=== PATIENT | male | born 1940 | race Caucasian/White ===

== ENCOUNTER 2018-02-24 06:35 | Day surgery (SDC) | payer MEDICARE, OTHER, SELFPAY ==
--- NOTE | 2018-02-24 | PATH_ITS ---
[facility] Accession Number: [id number] . 01 Material submitted: . PART A: CECUM POLYP PART B: POLYP AT 70CM . 01 Clinical history: . A-B: POLYP X2 . 02 Diagnosis: A. Cecum, Polyps, Biopsies: Tubular adenoma in 2 of 2 fragments. . B. Colon, Polyp At 70 CM, Biopsy: Tubular adenoma in 2 of 3 fragments. BFI02/28/2018 . 02 Electronically signed: . Kassidy Martin MD, Pathologist NPI- [id number] . 01 Gross description: . A. The specimen is received in a container of formalin, labeled with the patient's name, designated polyp x2 at cecum. The specimen consists of three 0.1-0.4 cm, pink-sanchez, polypoid biopsies. Entirely submitted three pieces in cassette A1. B. The specimen is received in a container of formalin, labeled with the patient's name, designated polyp x2 at 70 cm. The specimen consists of three 0.3-0.4 cm, thin, xavier-sanchez biopsies. ET intact, 3 pieces, in cassette B1. ([id number]) /FRR . 02 Pathologist provided ICD-10: D12.0, D12.6 . 02 CPT . 745198, 516013 Performed at: [address] [facility] [address], [place], [place] [id number] MD Venkata Coelho MD Phone: [phone] [facility]formed at: [facility] [address] [place], [place] [id number] MD Krishna Denny MD Phone: [phone]
[2018-02-24 07:11] VITALS: BP 129/76; PULSE 58; RESP 16; TEMP 35.9; O2SAT 99; BMI 25.9
[2018-02-24] MEDS: SODIUM CHLORIDE 0.9% 1,000 ML 200 ML IV (07:15)
--- NOTE | 2018-02-24 08:27 | P.HP_ITS ---
History of Present Illness Chief complaint: colonoscopy [id number] Narrative: Renato aBin is a 77 year old male who is remarkably healthy for his age. He reports he has a history of colon polyps and it is time for a screening colonoscopy. He denies any problems or symptoms related to the function of his GI tract. Patient History Surgical History History of carpal tunnel repair History of esophagogastroduodenoscopy (EGD) Status post colonoscopy Family & Social History Family History: Reviewed 02/24/18 by aTmica Quinn MD Social History: household members spouse Meds Home Medications Medication Instructions Recorded Confirmed Type ltuujwqgbfje-jpbn-gtttl acid 1 tab PO DAILY 02/24/18 02/24/18 History [Centrum] Allergies Allergy/AdvReac Type Severity Reaction Status Date / Time No Known Drug Allergies Allergy Verified 02/24/18 07:35 Review of Systems Review of Systems All systems reviewed & are unremarkable except as noted in HPI and below Exam Vital Signs (past 8 hours): Vital Signs - 8 hr 3 02/24/18 07:11 Temperature 96.7 F L Pulse Rate 58 L Respiratory Rate 16 Blood Pressure 129/76 H Pulse Oximetry 99 Pulse Oximetry 99 Oxygen Delivery Method Room Air Narrative Exam Narrative: HEENT: Normocephalic atraumatic, pupils equal round reactive to light accommodation with anicteric sclera Lungs: Clear to auscultation bilaterally Heart: Regular rate and rhythm Abdomen: Soft, nontender, active bowel sounds Extremities: Warm and well perfused Assessment & Plan Plan: Plan: We discussed the risks and benefits of colonoscopy the patient has expressed desire to have the procedure
[2018-02-24] MEDS: fentaNYL 250 MCG/5 ML INJ IV (08:40)
[2018-02-24] MEDS: MIDAZOLAM 5 MG/5 ML VIAL IV (08:44)
--- NOTE | 2018-02-24 08:56 | PM.OP.1 ---
Operative Date/Time/Diagnoses - Date of procedure: 02/24/18 Time of procedure: 08:56 Pre-op diagnosis: Personal history of colon polyps Post-op diagnosis: same Procedure & Clinicians Procedure: Colonoscopy to the cecum with polypectomy x4 Same procedure as scheduled: Yes Indications: Last colonoscopy 2013 Surgeon: Tamica Quinn Click Yes if Unassisted: Yes Anesthesia Type: Epidural and Sedation (Versed 5 mg; fentanyl 200 mcg) Operative Notes Findings: 1. Excellent prep 2. Two polyps just distal to the ileocecal valve and 2 polyps at 70 cm. All were sessile between 2 and 5 mm. All were completely removed with Jumbo cold forceps and retained for pathology 3. Diverticulosis affecting the sigmoid region with a few pockets just distal to the cecum 4. Normal mucosa throughout 5. Grade 1 internal hemorrhoids Closure Type: not applicable Estimated Blood Loss (mL): 1 Procedure in detail: After obtaining informed consent, the patient was brought to the GI suite and placed in the left lateral decubitus position on the examination table. After placement of appropriate monitors, the patient was given incremental doses of Versed and Fentanyl until an appropriate level of sedation was achieved. A time out was held per SCOAP protocol. A digital rectal examination was performed and did not reveal any masses or obstructing lesions. The colonoscope was gently passed into the patient's anus and the entire colon navigated to the level of the cecum with minimal difficulty. Once in the cecum, the scope was withdrawn being sure to go before and beyond all mucosal folds and prominences and get an excellent examination. The findings are noted above. At the level of the rectal vault, the scope was retroflexed and the internal anal canal was examined. The scope was straightened and air aspirated from the colon. The instrument was removed from the patient's body and the procedure was concluded. The patient was allowed to awaken from sedation without difficulty and taken to the post-anesthesia care unit in good condition. Total sedation time 25 min Total withdrawal time 17 min Complications: none Condition: stable Disposition: PACU Plan for aftercare: 1. Discharge to home 2. Plan for next colonoscopy in 5 years or as clinically indicated 3. We will contact you with pathology results and recommendations
[2018-02-24 09:27] VITALS: BP 129/69; PULSE 69; RESP 16; TEMP 36.1
--- NOTE | 2018-02-24 09:34 | SUR.PHASEII ---
outcomes met on discharge, pt skipped pacu as he was awake after proceedure. pt's in both voiced an understanding of d/c instruction. pt left after he dressed when he was ready.
--- NOTE | 2018-02-24 09:42 | SUR.PHASEII ---
pt left in stable condition.
== END 2018-02-24 09:30 | disposition home or self-care (01) ==
PROVIDERS: Family Provider Family Medicine; PCP Family Medicine; Visit Provider Surgery
PROC: 0DJD8ZZ Inspection of Lower Intestinal Tract, Via Natural or Artificial Opening Endoscopic (ICD-10-PCS; CPT 45378; principal; 2018-02-24 07:45)
DX: Z12.11 Encounter for screening for malignant neoplasm of colon (principal); K57.30 Diverticulosis of large intestine without perforation or abscess without bleeding; K64.0 First degree hemorrhoids; D12.0 Benign neoplasm of cecum; D12.6 Benign neoplasm of colon, unspecified
CPT/HCPCS: 45380; 88305; 99152; 99153; J2250; J3010

== ENCOUNTER → 2018-07-05 07:03 | Outpatient (CLI) | payer MEDICARE, OTHER, SELFPAY ==
--- NOTE | 2018-07-05 07:05 | DI.US.S_ITS ---
PROCEDURE: US EXTREMITY NONVASC LOWER RT INDICATIONS: CALF LUMP TECHNIQUE: Real-time scanning was performed of the mid right meyers, with image documentation. COMPARISON: None. FINDINGS: No sonographically visible mass or fluid collection seen within the mid right meyesr IMPRESSION: No sonographic abnormality. Dictated by: [facility] WOODRUFF Interpreted: Eladia Bennett MD on 07/05/2018 at 8:53 Approved by: Eladia Bennett M.D. on 07/05/2018 at 15:37
== END ==
PROVIDERS: Family Provider Family Medicine; PCP Family Medicine; Visit Provider Internal Medicine
DX: R22.9 Localized swelling, mass and lump, unspecified (principal)
CPT/HCPCS: 76882

== ENCOUNTER → 2019-01-24 09:10 | Outpatient (CLI) | payer MEDICARE, OTHER, SELFPAY ==
[2019-01-24 10:30] LABS: Appearance Urine UA CLEAR; Bilirubin Urine UA NEGATIVE (NEGATIVE); Color Urine UA YELLOW; Glucose Urine UA NEGATIVE (Negative); Ketones Urine UA NEGATIVE (NEGATIVE); Leukocyte Esterase Urine UA NEGATIVE (NEGATIVE); Nitrite Urine UA NEGATIVE (Negative); Occult Blood Urine UA TRACE-INTACT (Negative); Protein Urine UA NEGATIVE (Negative); Specific Gravity Urine UA 1.025 (1.000-1.035); Urobilinogen Urine UA 0.2 E.U./dL (0.2); pH Urine UA 5.5 (4.5-8.0)
[2019-01-24 10:55] LABS: Bacteria Urine Few (2-10); Culture Indicated Urine Cult Not Indicated; Mucus Urine 2+ (Negative); RBC Urine 1-5/HPF (0-5/HPF); Squamous Epithelial Cell Urine 0-1 /HPF (0-5/HPF); WBC Urine 0-1/HPF (0-5/HPF)
[2019-01-24 11:20] LABS: Add Manual Diff / Slide Review NO; Basophils Absolute Auto 0 /uL (0-100); Basophils Percent Auto 0.6 % (0-2); Eosinophils Absolute Auto 100 /uL (0-450); Eosinophils Percent Auto 1.4 % (2-4); Hematocrit 44.6 % (41-53); Hemoglobin 15.4 g/dL (13.5-17.5); Lymphocytes Absolute Auto 1300 /uL (1100-4500); Mean Corpuscular HGB Conc 34.5 % (30-36); Mean Corpuscular Hemoglobin 33.8 PG (26-34); Mean Corpuscular Volume 97.9 fL (80-100); Monocytes Absolute Auto 700 /uL (0-900); Monocytes Percent Auto 11.6 % (3-14); Neutrophils Absolute Auto 3700 /uL (1500-7000); Neutrophils Percent Auto 64.4 % (50-75); Platelet Count 285 X10^3/uL (150-400); Red Blood Cell Count 4.55 X10^6/uL (4.5-5.9); Red Cell Distribution Width 12.7 % (11.6-14.8); White Blood Cell Count 5.7 X10^3/uL (4.5-11.0)
[2019-01-24 11:31] LABS: Blood Urea Nitrogen 21 mg/dL (9-20); Calcium 9.6 mg/dL (8.4-10.2); Carbon Dioxide 31 mmol/L (22-32); Chloride 102 mmol/L (98-107); Estimated Glomerular Filt Rate > 60.0 mL/min (>60); Glucose 84 mg/dL (80-110); HEMOLYSIS < 15 (0-50); Potassium 3.9 mmol/L (3.4-5.1); Sodium 140 mmol/L (137-145)
== END ==
PROVIDERS: PCP Student in an Organized Health Care Education/Training Program; Visit Provider Student in an Organized Health Care Education/Training Program
DX: R30.0 Dysuria (principal)
CPT/HCPCS: 36415; 80048; 81001; 85025

== ENCOUNTER → 2019-02-03 10:33 | Outpatient (CLI) | payer MEDICARE, OTHER, SELFPAY ==
--- NOTE | 2019-02-03 10:35 | DI.US.S_ITS ---
PROCEDURE: US ABDOMEN LIMITED INDICATIONS: BILAT GROIN PAIN TECHNIQUE: Real-time focused scanning was performed of the inguinal regions, with image documentation. COMPARISON: None. FINDINGS: Slightly prominent fatty bulge in deep soft tissues of the groin with trace amount of encapsulated free fluid centrally. No significant soft tissue edema. Benign-appearing, mildly prominent inguinal lymph nodes are present in angle regions bilaterally. The vasculature is incidentally noted to be patent with mild atherosclerosis. IMPRESSION: Soft tissue fullness with trace central fluid in the right inguinal region may represent a hernia, inguinal or femoral. A CT scan of the pelvis with Valsalva maneuver is recommended for further evaluation. Dictated by: Do Fernández M.D. on 02/03/2019 at 12:37 Approved by: Do Fernández M.D. on 02/03/2019 at 12:45
== END ==
PROVIDERS: PCP Student in an Organized Health Care Education/Training Program; Visit Provider Student in an Organized Health Care Education/Training Program
DX: R10.30 Lower abdominal pain, unspecified (principal)
CPT/HCPCS: 76705

== ENCOUNTER → 2019-02-22 07:31 | Outpatient (CLI) | payer MEDICARE, OTHER, SELFPAY ==
--- NOTE | 2019-02-22 07:32 | DI.CT.S_ITS ---
PROCEDURE: CT ABDOMEN PELVIS WO CON INDICATIONS: S/p hernia repair with recurrent inguinal pain TECHNIQUE: Noncontrast 5 mm thick sections acquired from the diaphragms to the symphysis. 5 mm coronal and sagittal reformats were then performed. For radiation dose reduction, the following was used: automated exposure control, adjustment of mA and/or kV according to patient size. COMPARISON: None. FINDINGS: Image quality: Limited by absence of both oral and intravenous contrast. ABDOMEN: Lung bases: Lung bases are clear except for minimal linear scarring. Heart size is normal. Solid organs: Liver is normal in size. There are scattered punctate hepatic and splenic calcifications consistent with old granulomatous disease. Gallbladder appears normal. Pancreas is normal in contours. Spleen is normal in size. No adrenal nodules. Kidneys are normal in size, without hydronephrosis but there does appear to be nephrolithiasis at the central renal collecting system on the right where a nonobstructive calculus measures up to 1 cm x 0.5 cm. A nonobstructive 3 x 4 mm calculus is seen at a lower third calyx of the left kidney. nephrolithiasis. Peritoneum and bowel: Unenhanced bowel loops demonstrate normal wall thickness and caliber. No free fluid or air. Nodes and vessels: No retroperitoneal or mesenteric adenopathy by size criteria. Aorta and inferior vena cava are normal in caliber. Miscellaneous: No ventral hernias. PELVIS: Genitourinary: Bladder wall thickness is normal. Miscellaneous: No inguinal hernias or adenopathy. Bones: No suspicious bony lesions. No vertebral body compression fractures. IMPRESSION: At the inguinal canals bilaterally no recurrent hernia is found. No inflammation within the pelvis is seen. Incidental note is made of bilateral renal collecting system calculi without urinary tract distention. 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 Dictated by: Ousmane Blancas M.D. on 02/22/2019 at 13:08 Approved by: Ousmane Blancas M.D. on 02/22/2019 at 13:11
== END ==
PROVIDERS: PCP Student in an Organized Health Care Education/Training Program; Visit Provider Student in an Organized Health Care Education/Training Program
DX: R10.30 Lower abdominal pain, unspecified (principal); N20.0 Calculus of kidney
CPT/HCPCS: 74176

== ENCOUNTER → 2019-08-07 13:52 | Outpatient (CLI) | payer MEDICARE, OTHER, SELFPAY ==
--- NOTE | 2019-08-18 16:00 | P.HOLT.S_ITS ---
[employer] Report Referral & Results Date Patient Seen: 08/07/19 Requesting provider: Evans Kennedy Indication: Dizziness Duration of monitoring (days): 4 Diary information: There were 2 patient triggered events and 1 patient diary entry The triggered events were associated with sinus rhythm and ventricular ectopic beats The diary event was associated with sinus rhythm only Data: Minimum heart rate identified was 46 beats per minute at 02:25 on 08/11/2019 Maximum sinus heart rate was 122 beats per minute at 15:58 on 08/09/2019 Maximum overall heart rate was 167 beats per minute at 08:47 on 08/08/2019 during a 4 beat run of SVT Less than 1% of identified beats rather ventricular supraventricular ectopic in origin Patient had to runs of SVT the longest lasting 8 beats at 130 beats per minute which suggest this was more likely atrial tachycardia 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 No etiology for dizziness identified on this study Clinical correlation suggested
== END ==
PROVIDERS: PCP Student in an Organized Health Care Education/Training Program; Visit Provider Student in an Organized Health Care Education/Training Program
DX: R42 Dizziness and giddiness (principal); R55 Syncope and collapse
CPT/HCPCS: 0296T; 0298T

== ENCOUNTER → 2019-10-19 10:27 | Outpatient (CLI) | payer MEDICARE, OTHER, SELFPAY ==
--- NOTE | 2019-10-19 10:29 | DI.RAD.S_ITS ---
PROCEDURE: XR RIBS RT MIN 2V W CXR 1V INDICATIONS: right rib pain TECHNIQUE: 2 views of the right ribs were acquired, along with a single view chest. COMPARISON: None. FINDINGS: Surgical changes and devices: None. Bones and chest wall: No fractures or dislocations. No suspicious bony lesions. Overlying soft tissues appear unremarkable. Lungs and pleura: No pleural effusions or pneumothorax. Lungs appear clear. Mediastinum: Mediastinal contours appear normal. Heart size is normal. IMPRESSION: No displaced rib fracture. Dictated by: Daisha Garcia MD, PhD on 10/19/2019 at 14:41 Approved by: Daisha Garcia MD, PhD on 10/19/2019 at 14:42
== END ==
PROVIDERS: PCP Student in an Organized Health Care Education/Training Program; Visit Provider Nurse Practitioner Family
DX: R07.81 Pleurodynia (principal)
CPT/HCPCS: 71101

== ENCOUNTER 2019-12-09 22:50 | Emergency (ER) | payer MEDICARE, OTHER, SELFPAY ==
[2019-12-09 23:00] VITALS: BP 170/80; PULSE 68; RESP 18; TEMP 36.4; O2SAT 100; BMI 25.8
--- NOTE | 2019-12-09 23:11 | ED_ITS ---
HPI - General Adult General Chief complaint: Abdominal Pain Stated complaint: lower left abdominal pain Time Seen by Provider: 12/09/19 22:53 Source: patient Mode of arrival: Ambulatory Limitations: no limitations History of Present Illness HPI narrative: 79-year-old male here for evaluation of left lower quadrant a bdominal pain. He states that was a fairly sudden onset. Does seem to come and go however it never completely resolves. No urinary symptoms. No bowel changes. No fevers. Has never had kidney stone in the past. No change in the pain with palpation. Has not tried anything for symptoms prior to arrival. Related Data Home Medications Medication Instructions Recorded Confirmed bklycuqocoqo-xckg-rsheo acid 1 tab PO DAILY 02/24/18 10/19/19 [Centrum] ascorbic acid (vitamin C) 1,500 mg 1,500 mg PO DAILY 03/08/19 10/19/19 tablet,extended release glucosamine sulfate 2KCl 1,000 mg 2,000 mg PO DAILY 03/08/19 10/19/19 tablet omega-3 fatty acids 1,000 mg 1,000 mg PO DAILY 03/08/19 10/19/19 capsule Previous Rx's Medication Instructions Recorded hydrocodone-acetaminophen [[place]] 1 tab PO Q4-6H PRN #7 tab 12/10/19 ondansetron 4 mg PO Q6H PRN #10 tab 12/10/19 Allergies Allergy/AdvReac Type Severity Reaction Status Date / Time No Known Drug Allergies Allergy Verified 10/19/19 10:08 Review of Systems Constitutional Constitutional: Denies fever(s) and Denies headache(s) ENT Ears, Nose, Mouth, and Throat: Denies headache(s) Cardiovascular Cardiovascular: Denies chest pain and Denies dyspnea Respiratory Respiratory: Denies dyspnea Gastrointestinal Gastrointestinal: Reports abdominal pain, Denies change in stool character, Denies nausea and Denies vomiting Genitourinary Genitourinary: Denies dysuria Musculoskeletal Musculoskeletal: Denies abnormal gait and Denies arthralgias Integumentary/Breasts Skin/Breast: Denies lesions and Denies rash Neurologic Neurologic: Denies abnormal gait, Denies behavioral changes and Denies headache(s) Psychiatric Psychiatric: Denies behavioral changes Hematologic/Lymphatic Hematologic/Lymphatic: Denies easy bleeding and Denies easy bruising Patient History Medical History Cataract (Resolved) Chronic back pain (Chronic) Colon polyps (Resolved 2011) CTS (carpal tunnel syndrome) (Resolved 2012) Helicobacter pylori (H. pylori) infection (Resolved 2007) Left wrist fracture (Resolved) PUD (peptic ulcer disease) (Chronic) Social History household members: spouse Smoking Status: Former smoker Smoking Status: Former smoker alcohol intake frequency: 3 or more drinks per day Substance Use Type: does not use Exam Initial Vital Signs Initial Vital Signs: Vital Signs Temperature 97.5 F L 12/09/19 23:00 Pulse Rate 68 12/09/19 23:00 Respiratory Rate 18 12/09/19 23:00 Blood Pressure 170/80 H 12/09/19 23:00 Pulse Oximetry 100 12/09/19 23:00 Const General: cooperative, comfortable and well developed Limitations: mental status not altered HENMT Head: normal to inspection and normocephalic Cardio Rate: regular rate Rhythm: regular rhythm GI Inspection: non-distended Palpation: soft Back/Spine/Pelvis Back: No CVA tenderness Skin Lesions: no lesions Rashes: no rashes Neuro General: alert and awake Cognition: normal cognition Speech: speech normal Gait: normal gait Extrem General: normal to inspection and capillary refill normal Psych Appearance: grossly normal and well kempt Scores GCS Holly coma scale eye opening: Spontaneous Holly coma scale verbal response: Orientated [place] coma scale motor response: Obey commands Holly coma scale total score: 15 Course Orders Ordered: ED Orders 12/09/19 23:05 Complete Blood Count AUTO DIFF Stat Comprehensive Metabolic Panel Stat Lipase Stat Partial Thromboplastin Time Stat Prothrombin Time INR Stat Urine Culture Stat Urine Microscopic Stat 12/09/19 23:11 CT kidney ureter bladder (KUB) Stat Discontinued Medications Hydrocodone Bitart/Acetaminophen (Vicodin 5/325 Prepack) 1 bottle MISC SEEINSTR ONE Stop: 12/10/19 01:17 Last Admin: 12/10/19 01:23 Dose: 1 bottle Documented by: NATALEE Ketorolac Tromethamine (Toradol) 30 mg IV NOW ONE Stop: 12/09/19 23:12 Last Admin: 12/09/19 23:24 Dose: 30 mg Documented by: FRANNY Ondansetron HCl (Zofran Odt Prepack) 1 bottle MISC SEEINSTR ONE Stop: 12/10/19 01:17 Last Admin: 12/10/19 01:23 Dose: 1 bottle Documented by: NATALEE Vital Signs Vital signs: Vital Signs - 8 hr 12/09/19 23:00 12/10/19 01:15 Temperature 97.5 F L Pulse Rate 68 59 L Respiratory Rate 18 16 Blood Pressure 170/80 H Blood Pressure [Left Arm] 130/80 Pulse Oximetry 100 96 Medical Decision Making Lab Data Lab results reviewed: Yes I reviewed the patient's lab results. Result diagrams: 12/09/19 23:05 12/09/19 23:05 Labs: Lab Results 12/09/19 12/09/19 12/09/19 Range/Units 23:05 23:05 23:05 WBC 5.2 (4.5-11.0) X10^3/uL RBC 4.75 (4.5-5.9) X10^6/uL Hgb 16.3 (13.5-17.5) g/dL Hct 47.0 (41-53) % MCV 99.0 (80-100) fL MCH 34.3 H (26-34) PG MCHC 34.6 (30-36) % RDW 12.7 (11.6-14.8) % Plt Count 276 (150-400) X10^3/uL Neut % (Auto) 50.3 (50-75) % Lymph % (Auto) 34.2 (25-40) % [place] % (Auto) 11.7 (3-14) % Eos % (Auto) 2.6 (2-4) % Baso % (Auto) 1.2 (0-2) % Neut # (Auto) 2600 (7525-0864) /uL Lymph # (Auto) 1800 (9634-0181) /uL [place] # (Auto) 600 (0-900) /uL Eos # (Auto) 100 (0-450) /uL Baso # (Auto) 100 (0-100) /uL PT 10.7 (10.1-12.7) SECONDS INR 0.9 (0.9-1.3) APTT 32 (26.4-36.2) SECONDS Sodium 140 (137-145) mmol/L Potassium 3.6 (3.4-5.1) mmol/L Chloride 104 (98-107) mmol/L Carbon Dioxide 28 (22-32) mmol/L BUN 14 (9-20) mg/dL Creatinine 0.94 (0.66-1.25) mg/dL Estimated GFR > 60.0 (>60) mL/min BUN/Creatinine Ratio 14.9 (6-22) Glucose 113 H (80-110) mg/dL Calcium 10.0 (8.4-10.2) mg/dL Total Bilirubin 0.7 (0.2-1.3) mg/dL AST 39 (17-59) IU/L ALT 29 (<50) IU/L Alkaline Phosphatase 70 (38-126) U/L Total Protein 7.8 (6.3-8.2) g/dL Albumin 4.7 (3.5-5.0) g/dL Globulin 3.1 (1.7-4.1) g/dL Albumin/Globulin Ratio 1.5 (1.0-2.8) Lipase 101 (23-300) U/L Urine RBC (0-5/HPF) Urine WBC (0-5/HPF) Urine Bacteria (None) Ur Culture Indicated? 12/09/19 Range/Units 23:05 WBC (4.5-11.0) X10^3/uL RBC (4.5-5.9) X10^6/uL Hgb (13.5-17.5) g/dL Hct (41-53) % MCV (80-100) fL MCH (26-34) PG MCHC (30-36) % RDW (11.6-14.8) % Plt Count (150-400) X10^3/uL Neut % (Auto) (50-75) % Lymph % (Auto) (25-40) % [place] % (Auto) (3-14) % Eos % (Auto) (2-4) % Baso % (Auto) (0-2) % Neut # (Auto) (3348-0293) /uL Lymph # (Auto) (9660-4297) /uL [place] # (Auto) (0-900) /uL Eos # (Auto) (0-450) /uL Baso # (Auto) (0-100) /uL PT (10.1-12.7) SECONDS INR (0.9-1.3) APTT (26.4-36.2) SECONDS Sodium (137-145) mmol/L Potassium (3.4-5.1) mmol/L Chloride (98-107) mmol/L Carbon Dioxide (22-32) mmol/L BUN (9-20) mg/dL Creatinine (0.66-1.25) mg/dL Estimated GFR (>60) mL/min BUN/Creatinine Ratio (6-22) Glucose (80-110) mg/dL Calcium (8.4-10.2) mg/dL Total Bilirubin (0.2-1.3) mg/dL AST (17-59) IU/L ALT (<50) IU/L Alkaline Phosphatase (38-126) U/L Total Protein (6.3-8.2) g/dL Albumin (3.5-5.0) g/dL Globulin (1.7-4.1) g/dL Albumin/Globulin Ratio (1.0-2.8) Lipase (23-300) U/L Urine RBC 0-1/hpf (0-5/HPF) Urine WBC 0-1/hpf (0-5/HPF) Urine Bacteria None seen (None) Ur Culture Indicated? Specimen cultured Urine Dip Bedside Urine Glucose Negative Bedside Urine Bilirubin - Negative Bedside Urine Ketone - Negative Urine Specific [place] 1.015 Bedside Urine Occult Blood +/- Bedside Urine pH 5.5 Bedside Urine Protein - Negative Bedside Urine Urobilinogen - Negative Bedside Urine Leukocytes + 70 Esterase Point of care testing: Urine Dip Bedside Urine Glucose Negative Bedside Urine Bilirubin - Negative Bedside Urine Ketone - Negative Urine Specific [place] 1.015 Bedside Urine Occult Blood +/- Bedside Urine pH 5.5 Bedside Urine Protein - Negative Bedside Urine Urobilinogen - Negative Bedside Urine Leukocytes + [address] scan - abdomen/pelvis: Radiologist's Impression: Proximal left ureteral 4 mm calculus causes mild left hydronephrosis and hydroureter Additional nonobstructing 12 mm calculus present within the right renal pelvis Bilateral fat containing hernias, right larger than left MDM Narrative Medical decision making narrative: Nontoxic. UA not consistent with infection. Kidney function unremarkable. CT scan consistent with left-sided ureteral stone. Discussed this with the patient. No indication for emergent urologic consultation. We did discuss treatment. Discussed return precautions and follow-up instructions. He expressed understanding and agreement. Discharge Plan Departure Patient Disposition: Home Clinical Impression: Renal colic on left side Discharge Date/Time: 12/10/19 01:26 Instructions: Kidney Stones -- Adult Activity Restrictions/Additional Instructions: You do have a 4 mm left-sided ureteral stone. Be sure to increase your fluid intake. Contact your primary provider for follow-up. If you are able to collect the stone take it to your primary provider for analysis. Return to the emergency department for any fevers, pain that is not controlled with the pain medication, inability to urinate, vomiting, or any other concerning symptoms. Prescriptions: New hydrocodone-acetaminophen [[place]] 5-325 mg tablet 1 tab PO Q4-6H PRN (Reason: pain) Qty: 7 RF: 0 ondansetron 4 mg tablet,disintegrating 4 mg PO Q6H PRN (Reason: nausea and vomiting) Qty: 10 RF: 0 No Action vleewoutxksb-nimg-lstcl acid [Centrum] 18-400 mg-mcg Tablet 1 tab PO DAILY RF: 0 omega-3 fatty acids [Fish Oil Concentrate] 1,000 mg capsule 1,000 mg PO DAILY RF: 0 glucosamine sulfate 2KCl [Glucosamine Relief] 1,000 mg tablet 2,000 mg PO DAILY RF: 0 ascorbic acid (vitamin C) 1,500 mg tablet extended release 1,500 mg PO DAILY RF: 0 Referrals: Evans Kennedy MD [Primary Care Provider] -
--- NOTE | 2019-12-09 23:11 | DI.CT.S_ITS ---
PROCEDURE: CT KIDNEY URETER BLADDER (KUB) INDICATIONS: Left flank pain concern for stone TECHNIQUE: Noncontrast 5 mm thick sections acquired from the diaphragms to the symphysis. 5 mm thick coronal and sagittal reformats were then performed. For radiation dose reduction, the following was used: automated exposure control, adjustment of mA and/or kV according to patient size. COMPARISON: [facility], CT, KIDNEY/ URETER/BLADDER, 10/23/2009, 3:04. FINDINGS: Image quality: Excellent. Lung bases: Lung bases are clear. Heart size is normal. Bilateral [place] hernias containing fat. Urinary system: Right kidney: Nonobstructing 7 x 13 mm renal pelvic stone. No process. Right ureter: Unremarkable. Left kidney: Mild hydronephrosis. Left ureter: 4 mm proximal ureteral stone just beyond the UPJ. Otherwise normal caliber. Bladder: No bladder wall thickening. No bladder stones. Other solid organs: Liver is normal in size. Calcified hepatic granulomata. Gallbladder is unremarkable. Pancreas is normal in contours. Spleen is normal in size. Calcified splenic granulomata. No adrenal nodules. Peritoneum and bowel: Unenhanced bowel loops demonstrate normal wall thickness and caliber. No free fluid or air. Nodes and vessels: No retroperitoneal or mesenteric adenopathy by size criteria. Aorta and inferior vena cava are normal in caliber. Abdominal wall: No ventral hernias. Pelvis: No free pelvic fluid. No inguinal hernias or adenopathy. Bones: No suspicious bony lesions. No vertebral body compression fractures. IMPRESSION: 1. A 4 mm stone is present in the proximal left ureter, resulting in mild left hydronephrosis. 2. 7 x 13 mm right renal pelvic stone, nonobstructing. 3. Note made of bilateral [place] hernias containing fat. Comment: Final report is concordant with preliminary interpretation provided by [facility]. Dictated by: Rex Toney M.D. on 12/10/2019 at 7:04 Approved by: Rex Toney M.D. on 12/10/2019 at 7:09
[2019-12-09 23:20] LABS: Add Manual Diff / Slide Review NO; Basophils Absolute Auto 100 /uL (0-100); Basophils Percent Auto 1.2 % (0-2); Eosinophils Absolute Auto 100 /uL (0-450); Eosinophils Percent Auto 2.6 % (2-4); Hemoglobin 16.3 g/dL (13.5-17.5); Lymphocytes Absolute Auto 1800 /uL (1100-4500); Lymphocytes Percent Auto 34.2 % (25-40); Mean Corpuscular HGB Conc 34.6 % (30-36); Mean Corpuscular Hemoglobin 34.3 PG (26-34); Monocytes Absolute Auto 600 /uL (0-900); Monocytes Percent Auto 11.7 % (3-14); Neutrophils Absolute Auto 2600 /uL (1500-7000); Neutrophils Percent Auto 50.3 % (50-75); Platelet Count 276 X10^3/uL (150-400); Red Blood Cell Count 4.75 X10^6/uL (4.5-5.9); Red Cell Distribution Width 12.7 % (11.6-14.8); White Blood Cell Count 5.2 X10^3/uL (4.5-11.0)
[2019-12-09] MEDS: KETOROLAC 60 MG/2 ML VIAL 30 MG IV (23:24)
[2019-12-09 23:28] LABS: Bacteria Urine None Seen
[2019-12-09 23:29] LABS: Alanine Aminotransferase 29 IU/L (<50); Albumin 4.7 g/dL (3.5-5.0); Albumin Globulin Ratio 1.5 (1.0-2.8); Alkaline Phosphatase 70 U/L (38-126); Aspartate Aminotransferase 39 IU/L (17-59); BUN Creatinine Ratio 14.9 (6-22); Bilirubin Total 0.7 mg/dL (0.2-1.3); Blood Urea Nitrogen 14 mg/dL (9-20); Carbon Dioxide 28 mmol/L (22-32); Chloride 104 mmol/L (98-107); Estimated Glomerular Filt Rate > 60.0 mL/min (>60); Globulin 3.1 g/dL (1.7-4.1); Glucose 113 mg/dL (80-110); HEMOLYSIS < 15 (0-50); Lipase 101 U/L (23-300); Potassium 3.6 mmol/L (3.4-5.1); Sodium 140 mmol/L (137-145); Total Protein 7.8 g/dL (6.3-8.2)
[2019-12-09 23:30] LABS: INR 0.9 (0.9-1.3); Prothrombin Time 10.7 SECONDS (10.1-12.7)
[2019-12-09 23:45] LABS: PTT Partial Thromboplastin Tim 32 SECONDS (26.4-36.2)
[2019-12-10 00:21] LABS: Culture Indicated Urine Specimen Cultured; RBC Urine 0-1/HPF (0-5/HPF); WBC Urine 0-1/HPF (0-5/HPF)
[2019-12-10 01:15] VITALS: BP 130/80; PULSE 59; RESP 16; O2SAT 96
[2019-12-10] MEDS: ONDANSETRON 4 MG ODT PREPACK 1 BOTTLE MISC (01:23)
[2019-12-10] MEDS: HYDROCODONE/ACET 5/325 PREPACK 1 BOTTLE MISC (01:23)
== END 2019-12-10 01:26 | disposition home or self-care (01) ==
PROVIDERS: Emergency Provider Emergency Medicine; PCP Student in an Organized Health Care Education/Training Program
DX: N20.0 Calculus of kidney (principal)
CPT/HCPCS: 36415; 74176; 80053; 81003; 81015; 83690; 85025; 85610; 85730; 87086; 96374; 99284; J1885

== ENCOUNTER → 2019-12-27 12:57 | Outpatient (CLI) | payer MEDICARE, OTHER, SELFPAY ==
[2019-12-27 13:55] LABS: Appearance Urine UA CLEAR; Bilirubin Urine UA NEGATIVE (NEGATIVE); Color Urine UA YELLOW; Glucose Urine UA NEGATIVE (Negative); Ketones Urine UA 1+ (NEGATIVE); Leukocyte Esterase Urine UA NEGATIVE (NEGATIVE); Nitrite Urine UA NEGATIVE (Negative); Occult Blood Urine UA 3+ (Negative); Protein Urine UA TRACE (Negative); Specific Gravity Urine UA >=1.030 (1.000-1.035); Urobilinogen Urine UA 0.2 E.U./dL (0.2)
[2019-12-27 14:15] LABS: Bacteria Urine Moderate (10-30); Hyaline Casts Urine 1-5/LPF; Mucus Urine 1+ (Negative); RBC Urine 10-30/HPF (0-5/HPF); Squamous Epithelial Cell Urine 0-1 /HPF (0-5/HPF); WBC Urine 1-5/HPF (0-5/HPF)
[2019-12-27 14:16] LABS: Culture Indicated Urine Cult Not Indicated
== END ==
PROVIDERS: PCP Student in an Organized Health Care Education/Training Program; Referring Provider Student in an Organized Health Care Education/Training Program; Visit Provider Student in an Organized Health Care Education/Training Program
DX: R39.89 Other symptoms and signs involving the genitourinary system (principal)
CPT/HCPCS: 81001

== ENCOUNTER → 2020-01-01 14:49 | Outpatient (CLI) | payer MEDICARE, OTHER, SELFPAY | PROVIDERS: PCP Student in an Organized Health Care Education/Training Program; Referring Provider Student in an Organized Health Care Education/Training Program; Visit Provider Student in an Organized Health Care Education/Training Program | DX: N20.0 Calculus of kidney (principal) | CPT/HCPCS: 82365 ==

== ENCOUNTER → 2020-03-28 15:32 | Outpatient (CLI) | payer MEDICARE, OTHER, SELFPAY ==
--- NOTE | 2020-03-28 | DI.RAD.S_ITS ---
PROCEDURE: XR RIBS RT MIN 3V W CXR 1V INDICATIONS: RIB PAIN FOLLOWING INJURY PERSISTED 6 MONTHS TECHNIQUE: 2 views of the right ribs were acquired, along with a single view chest. COMPARISON: [facility], CR, XR RIBS RT MIN 3V W CXR 1V, 10/19/2019, 10:26. FINDINGS: Surgical changes and devices: None. Bones and chest wall: No fractures or dislocations. No suspicious bony lesions. Overlying soft tissues appear unremarkable. Lungs and pleura: No pleural effusions or pneumothorax. Scattered subsegmental atelectasis and/or scarring. No focal consolidation. Mediastinum: Mediastinal contours appear normal. Heart size is normal. IMPRESSION: No acute disease. No rib fracture identified Dictated by: Álvaro Barone M.D. on 03/28/2020 at 16:23 Approved by: Álvaro Barone M.D. on 03/28/2020 at 16:24
== END ==
PROVIDERS: PCP Student in an Organized Health Care Education/Training Program; Referring Provider Student in an Organized Health Care Education/Training Program; Visit Provider Student in an Organized Health Care Education/Training Program
DX: R07.81 Pleurodynia (principal)
CPT/HCPCS: 71101

== ENCOUNTER → 2020-04-25 13:51 | Outpatient (CLI) | payer MEDICARE, OTHER, SELFPAY ==
[2020-04-25 14:23] LABS: Appearance Urine UA CLOUDY; Bilirubin Urine UA NEGATIVE (NEGATIVE); Color Urine UA YELLOW; Glucose Urine UA NEGATIVE (Negative); Ketones Urine UA TRACE (NEGATIVE); Leukocyte Esterase Urine UA 1+ (NEGATIVE); Nitrite Urine UA NEGATIVE (Negative); Occult Blood Urine UA 3+ (Negative); Protein Urine UA 1+ (Negative); Specific Gravity Urine UA 1.025 (1.000-1.035); Urobilinogen Urine UA 0.2 E.U./dL (0.2)
[2020-04-25 14:53] LABS: Bacteria Urine Many (>30); Culture Indicated Urine Specimen Cultured; RBC Urine >100/HPF (0-5/HPF); WBC Urine 10-30/HPF (0-5/HPF)
== END ==
PROVIDERS: PCP Student in an Organized Health Care Education/Training Program; Referring Provider Student in an Organized Health Care Education/Training Program; Visit Provider Student in an Organized Health Care Education/Training Program
DX: R10.30 Lower abdominal pain, unspecified (principal)
CPT/HCPCS: 81001; 87086

== ENCOUNTER → 2020-04-26 13:09 | Outpatient (CLI) | payer MEDICARE, OTHER, SELFPAY ==
[2020-04-26 13:27] LABS: Add Manual Diff / Slide Review NO; Basophils Absolute Auto 100 /uL (0-100); Basophils Percent Auto 1.1 % (0-2); Eosinophils Absolute Auto 100 /uL (0-450); Hematocrit 41.6 % (41-53); Hemoglobin 14.5 g/dL (13.5-17.5); Lymphocytes Absolute Auto 1400 /uL (1100-4500); Lymphocytes Percent Auto 26.2 % (25-40); Mean Corpuscular HGB Conc 34.9 % (30-36); Mean Corpuscular Hemoglobin 33.9 PG (26-34); Mean Corpuscular Volume 97.2 fL (80-100); Monocytes Absolute Auto 600 /uL (0-900); Monocytes Percent Auto 10.8 % (3-14); Neutrophils Absolute Auto 3300 /uL (1500-7000); Neutrophils Percent Auto 59.9 % (50-75); Platelet Count 239 X10^3/uL (150-400); Red Blood Cell Count 4.28 X10^6/uL (4.5-5.9); Red Cell Distribution Width 12.7 % (11.6-14.8); White Blood Cell Count 5.4 X10^3/uL (4.5-11.0)
[2020-04-26 13:53] LABS: BUN Creatinine Ratio 17.6 (6-22); Blood Urea Nitrogen 16 mg/dL (9-20); Calcium 9.1 mg/dL (8.4-10.2); Carbon Dioxide 30 mmol/L (22-32); Chloride 104 mmol/L (98-107); Estimated Glomerular Filt Rate > 60.0 mL/min (>60); Glucose 114 mg/dL (80-110); HEMOLYSIS < 15 (0-50); Potassium 3.8 mmol/L (3.4-5.1); Sodium 136 mmol/L (137-145)
--- NOTE | 2020-04-26 14:07 | DI.CT.S_ITS ---
PROCEDURE: CT ABDOMEN PELVIS WO/W CON INDICATIONS: Hematuria, groin pain TECHNIQUE: Optional 5 mm thick noncontrast images acquired from the diaphragm to the symphysis pubis. After the administration of intravenous contrast, 5 mm thick images acquired from the diaphragm to the symphysis pubis after a 10-minute delay. 2 mm thick coronal and sagittal reformats were then performed of the kidneys and ureters. For radiation dose reduction, the following was used: automated exposure control, adjustment of mA and/or kV according to patient size. COMPARISON: None. FINDINGS: Image quality: Excellent. Lung bases: Lung bases are clear. Heart size is normal. Note is made of a right posterior diaphragmatic hernia defect through which fat extends from the upper abdominal space into the posterior low right lower pleural space. This results in a prominence of fat in that area measuring up to 9.7 cm transverse and 6 cm AP. The diaphragmatic defect measures 1.6 cm in transverse orientation. Urinary system: Both kidneys are normal in size, without hydronephrosis or left-sided nephrolithiasis on pre-contrast images. On the right, however, there is a 6 x 13 mm central renal collecting system calculus the currently is nonobstructive but certainly could produce bow symptomatology and hematuria. No perinephric fat stranding. There is normal bilateral renal enhancement. Renal calyces appear normal in morphology when filled with contrast. Opacified portions of both ureters demonstrate normal caliber. Bladder wall thickness is normal. No calcified bladder stones. Other solid organs: Liver is normal in size and enhancement, but both the liver and spleen contain punctate granulomatous calcifications. Gallbladder appears normal . Biliary system is non dilated. Pancreas enhances normally. Spleen is normal in size and enhancement. No adrenal nodules. Peritoneum and bowel: Bowel loops demonstrate normal wall thickness and caliber. No free fluid or air. Nodes and vessels: No retroperitoneal or mesenteric adenopathy by size criteria. Aorta and inferior vena cava are normal in size. Abdominal wall: No ventral hernias. Pelvis: No pathologic free pelvic fluid. No inguinal hernias or adenopathy. There is no visualized evidence of bladder mass, but the bladder is not distended. Bones: No suspicious bony lesions. No vertebral body compression fractures. IMPRESSION: 1. Ovoid 6 x 13 mm nonobstructive right central renal collecting system calculus. Intermittent obstruction by this calculus conceivably could explain current symptomatology. 2. There is evidence of old granulomatous disease as indicated by scattered punctate splenic and hepatic parenchymal calcifications. No active granulomatous disease is found. 3. Note is made of a herniation of fat from the upper posterior right retroperitoneal region into the right lower posterior pleural space, without evidence of incarceration or strangulation, through a small diaphragmatic defect. Intermittent ischemic injury from such herniations can produce unusual symptomatology. Please correlate clinically. Dictated by: Ousmane Blancas M.D. on 04/26/2020 at 14:56 Approved by: Ousmane Blancas M.D. on 04/26/2020 at 15:06
== END ==
PROVIDERS: PCP Student in an Organized Health Care Education/Training Program; Referring Provider Student in an Organized Health Care Education/Training Program; Visit Provider Student in an Organized Health Care Education/Training Program
DX: R31.9 Hematuria, unspecified (principal); R10.30 Lower abdominal pain, unspecified; N20.0 Calculus of kidney; K82.8 Other specified diseases of gallbladder; K76.9 Liver disease, unspecified; K45.8 Other specified abdominal hernia without obstruction or gangrene
CPT/HCPCS: 36415; 74178; 80048; 85025; Q9967

== ENCOUNTER → 2020-05-07 11:30 | Outpatient (CLI) | payer MEDICARE, OTHER, SELFPAY | PROVIDERS: PCP Student in an Organized Health Care Education/Training Program; Visit Provider Specialist | DX: N39.0 Urinary tract infection, site not specified (principal); N20.0 Calculus of kidney; R31.9 Hematuria, unspecified; Z87.442 Personal history of urinary calculi | CPT/HCPCS: 81002; 87086; 99213 ==

== ENCOUNTER → 2020-05-21 08:09 | Outpatient (CLI) | payer MEDICARE, OTHER, SELFPAY ==
[2020-05-22 09:21] LABS: COVID19 Sendout Not Detected (Not Detect)
== END ==
PROVIDERS: PCP Student in an Organized Health Care Education/Training Program; Visit Provider Physician Assistant
DX: Z11.59 Encounter for screening for other viral diseases (principal)
CPT/HCPCS: 87635

== ENCOUNTER 2020-05-24 06:44 | Day surgery (SDC) | payer MEDICARE, OTHER, SELFPAY ==
[2020-05-21 07:38] VITALS: BMI 26.6
[2020-05-24 07:14] VITALS: BMI 26.6
[2020-05-24 07:22] VITALS: BP 150/72; PULSE 51; RESP 18; TEMP 36.3; O2SAT 100
--- NOTE | 2020-05-24 07:27 | PM.PREOP ---
Pre-operative Note Interval Note History & Physical reviewed/Exam performed by Physician: Yes Changes to H&P: No
[2020-05-24] MEDS: CEFAZOLIN 2 GM/100 ML FROZ.PIGGY IV (07:45)
--- NOTE | 2020-05-24 08:08 | SUR.OPER ---
Supine on padded ESWL bed bed, head on pillow, arms at sides at <90 degrees abduction, legs uncrossed,
[2020-05-24 08:33] VITALS: BP 140/67; PULSE 57; RESP 16; TEMP 36.2; O2SAT 100
--- NOTE | 2020-05-24 08:33 | P.OP_ITS ---
Operative Date/Time/Diagnoses Date of procedure: 05/24/20 Time of procedure: 08:34 Pre-op diagnosis: 1. Obstructing 6 x 13 mm right renal pelvic calculus 2. Intermittent right renal colic. 3. Intermittent gross hematuria. Post-op diagnosis: same Procedure & Clinicians Procedure: Right extracorporeal shockwave lithotripsy (1750 shocks times 7.0 maximum power). Same procedure as scheduled: Yes Indications: 1. Obstructing 6 x 13 mm right renal pelvic calculus 2. Intermittent right renal colic. 3. Intermittent gross hematuria. Click Yes if Unassisted: Yes Anesthesia Type: General Operative Notes Findings: Index calculus was seen adequately with intraoperative fluoroscopy and treated as described. Closure Type: not applicable Specimen(s): none sent Estimated Blood Loss (mL): 0 Blood products transfused: none Tourniquet time (min): 0 Procedure in detail: The patient was positioned in supine was administered general anesthesia. The above-described index calculus was localized in the X, Y, and Z plane. Lithotripsy was then commenced at minimal power level for total of 200 shocks. A 2 minutes pause was then conducted. Lithotripsy was then resumed and the power level gradually increased to maximum power level of 7.0. The stone readily fragmented. The stone fragments were really localized as needed during the treatment with fluoroscopic assistance. And 1750 shocks treatment was halted. There was excellent radiographic evidence of stone comminution. The patient was then awakened transferred to [facility] and transferred to recovery in stable condition. Complications: none Post-operative Condition: stable Disposition: PACU Plan for aftercare: Discharge home
[2020-05-24 08:38] VITALS: BP 117/48; PULSE 57; RESP 17; TEMP 35.8; O2SAT 100
[2020-05-24 08:44] VITALS: BP 105/46; PULSE 61; RESP 17; TEMP 36; O2SAT 100
[2020-05-24] MEDS: FUROSEMIDE 40 MG/4 ML VIAL 20 MG IV (08:47)
[2020-05-24 08:48] VITALS: BP 114/64; PULSE 58; RESP 12; TEMP 35.6; O2SAT 98
[2020-05-24 09:24] VITALS: BP 133/70; PULSE 56; RESP 16; TEMP 36.1; O2SAT 98
== END 2020-05-24 09:53 | disposition home or self-care (01) ==
PROVIDERS: PCP Student in an Organized Health Care Education/Training Program; Referring Provider Student in an Organized Health Care Education/Training Program; Visit Provider Specialist
PROC: (CPT 50590; principal; 2020-05-24 07:45)
DX: N20.0 Calculus of kidney (principal)
CPT/HCPCS: 50590; J0690; J1100; J1940; J2405; J2704; J3010

== ENCOUNTER → 2020-05-27 10:22 | Outpatient (CLI) | payer MEDICARE, OTHER, SELFPAY ==
[2020-06-07 14:28] LABS: Ca oxalate dihydrate 70%; Ca oxalate monohydr 30%; Photo SEE EMR
== END ==
PROVIDERS: PCP Student in an Organized Health Care Education/Training Program; Referring Provider Specialist; Visit Provider Specialist
DX: N20.0 Calculus of kidney (principal)
CPT/HCPCS: 82365

== ENCOUNTER → 2020-07-05 10:06 | Outpatient (CLI) | payer MEDICARE, OTHER, SELFPAY ==
--- NOTE | 2020-07-05 10:12 | DI.RAD.S_ITS ---
PROCEDURE: XR KUB INDICATIONS: Right renal calculi TECHNIQUE: One view of the abdomen acquired. COMPARISON: [facility], CT, CT ABDOMEN PELVIS WO/W CON, 04/26/2020, 14:07. Of phleboliths. FINDINGS: Surgical changes and devices: None. Bowel: Bowel gas pattern is normal. Soft tissues: Multiple subcentimeter calcifications within the pelvis suggest the presence of pelvic phleboliths. The right pelvic renal calculus visualized on the study dated April 26, 2020 is not visualized on the current plain film. Bones: No suspicious bony lesions. IMPRESSION: 1. No radiographic findings to suggest nephrolithiasis. Dictated by: Cici Fuller M.D. on 07/05/2020 at 10:38 Approved by: Cici Fuller M.D. on 07/05/2020 at 10:41
== END ==
PROVIDERS: PCP Student in an Organized Health Care Education/Training Program; Referring Provider Specialist; Visit Provider Specialist
DX: R31.0 Gross hematuria (principal)
CPT/HCPCS: 74018

== ENCOUNTER → 2020-07-09 11:33 | Outpatient (CLI) | payer MEDICARE, OTHER, SELFPAY ==
[2020-07-09 12:54] LABS: Calcium 9.3 mg/dL (8.4-10.2); Uric Acid 6.1 mg/dL (3.5-8.5)
[2020-07-10 09:09] LABS: Parathyroid Hormone Int 30 pg/mL (15-65)
== END ==
PROVIDERS: PCP Student in an Organized Health Care Education/Training Program; Referring Provider Specialist; Visit Provider Specialist
DX: N20.0 Calculus of kidney (principal)
CPT/HCPCS: 36415; 82310; 83970; 84550

== ENCOUNTER → 2020-12-26 13:42 | Outpatient (CLI) | payer MEDICARE, OTHER, SELFPAY ==
--- NOTE | 2020-12-26 13:43 | DI.RAD.S_ITS ---
PROCEDURE: XR KUB INDICATIONS: kidney stones TECHNIQUE: One view of the abdomen acquired. COMPARISON: [facility], CR, XR KUB, 07/05/2020, 10:04. FINDINGS: Surgical changes and devices: None. Bowel: Bowel gas pattern is normal. Soft tissues: No suspicious abdominal calcifications. Visualized solid organ contours appear normal in size. Bones: No suspicious bony lesions. Spine degenerative disc disease and facet arthropathy. IMPRESSION: No renal stones identified by plain film radiograph. Dictated by: Daisha Garcia MD, PhD on 12/26/2020 at 14:45 Approved by: Daisha Garcia MD, PhD on 12/26/2020 at 14:46
== END ==
PROVIDERS: PCP Student in an Organized Health Care Education/Training Program; Referring Provider Specialist; Visit Provider Specialist
DX: N20.0 Calculus of kidney (principal)
CPT/HCPCS: 74018

== ENCOUNTER → 2021-06-16 08:36 | Outpatient (CLI) | payer MEDICARE, OTHER, SELFPAY ==
[2021-06-16 09:47] LABS: BUN Creatinine Ratio 14.3 (6-22); Blood Urea Nitrogen 17 mg/dL (9-20); Estimated Glomerular Filt Rate 58.7 mL/min (>60)
== END ==
PROVIDERS: PCP Student in an Organized Health Care Education/Training Program; Referring Provider Student in an Organized Health Care Education/Training Program; Visit Provider Student in an Organized Health Care Education/Training Program
DX: Z01.812 Encounter for preprocedural laboratory examination (principal)
CPT/HCPCS: 36415; 82565; 84520

== ENCOUNTER → 2021-06-17 10:14 | Outpatient (CLI) | payer MEDICARE, OTHER, SELFPAY ==
--- NOTE | 2021-06-17 10:16 | DI.CT.S_ITS ---
PROCEDURE: CT ABDOMEN PELVIS W CON INDICATIONS: Right retroperitoneal pain; re-eval prior hiatal hernia TECHNIQUE: After the administration of oral and intravenous contrast, axial sections were acquired from the lung bases to the pubic symphysis. Coronal and sagittal reformats were performed. For radiation dose reduction, the following was used: automated exposure control, adjustment of mA and/or kV according to patient size. COMPARISON:[facility], CT, CT ABDOMEN PELVIS WO/W CON, 04/26/2020, 14:07. [facility], CT, ABDOMEN/PELVIS WITH CONTRAST, 02/13/2013, 20:06. FINDINGS: Image quality: Excellent. Lung bases: Redemonstration of right-sided posterior diaphragmatic fat containing hernia with herniated fat extending into the posterior pleural space. Suggestion of mild interval increase in size now measuring 11.2 cm x 7.4 cm (axial image 12/series 2) versus 10.2 cm x 6.6 cm on the prior study when measured at a similar level. No adjacent inflammatory changes. No underlying erosions of the adjacent ribs. Heart: No significant findings. ABDOMEN: Liver: No focal abnormalities. Scattered calcified granulomas compatible with prior granulomatous disease. Gallbladder: Unremarkable. Biliary ducts: Unremarkable. Pancreas: Unremarkable. Spleen: Homogeneous enhancement. Multiple scattered calcified granulomas compatible with prior granulomatous disease. Adrenal Glands: Unremarkable. Kidneys and Ureters: Kidneys are symmetric in size and enhancement, and there is no obstructive uropathy. No perinephric inflammatory changes. Ureters are normal in course and caliber. Previously seen right renal pelvic calculus has passed. Stomach and Bowel: Stomach, small bowel loops, and colon are unremarkable. Normal appendix. Peritoneum: No abnormal intraperitoneal fluid. No free air. Ventral Wall: No hernia. Abdominal Nodes: No retroperitoneal or mesenteric adenopathy by size criteria. Vessels: Scattered atherosclerotic calcifications of the abdominal aorta and iliac vessels without aneurysmal dilatation. PELVIS: Pelvic Organs: Redemonstration of mildly prominent prostate gland with internal coarse calcifications. Bladder: Unremarkable. Pelvic Nodes: There is a 1.5 x 0.8 cm left pelvic lymph node seen lateral and superior to the prostate. Otherwise no pelvic lymphadenopathy. Miscellaneous: No inguinal hernias are seen. Bones: No acute vertebral body compression fractures. Multilevel spondylitic changes throughout the imaged spine. No suspicious osseous lesions. IMPRESSION: 1. CT abdomen and pelvis without acute abnormalities. 2. Redemonstration of prominent fat containing posterior right diaphragmatic hernia which demonstrates mild interval enlargement. No adjacent inflammatory changes. Recommend clinical correlation for associated symptomatology. 3. Nonspecific 1.5 x 0.8 cm left pelvic lymph node seen lateral and superior to the mildly enlarged prostate gland. Consider correlation with laboratory evaluation/PSA. 4. Findings compatible with prior granulomatous disease. Dictated by: Chidi Sutherland M.D. on 06/17/2021 at 14:55 Approved by: Chidi Sutherland M.D. on 06/17/2021 at 15:08
== END ==
PROVIDERS: PCP Student in an Organized Health Care Education/Training Program; Referring Provider Student in an Organized Health Care Education/Training Program; Visit Provider Student in an Organized Health Care Education/Training Program
DX: M54.5 Low back pain (principal); K44.9 Diaphragmatic hernia without obstruction or gangrene
CPT/HCPCS: 74177

== ENCOUNTER 2022-05-03 07:44 | Emergency (ER) | payer MEDICARE, OTHER, SELFPAY ==
[2022-05-03 07:59] VITALS: BP 168/93; PULSE 63; TEMP 36.6; O2SAT 98; BMI 27.3
--- NOTE | 2022-05-03 08:17 | DI.RAD.S_ITS ---
PROCEDURE: XR HIP W PEL IF DONE LT 2V INDICATIONS: pain TECHNIQUE: Frontal view of the pelvis along with frogleg lateral view of the left hip was performed. COMPARISON: [facility], CT, CT ABDOMEN PELVIS W CON, 06/17/2021, 11:34. FINDINGS: Bones: No fractures or dislocations. No suspicious bony lesions. The visualized pelvic ring appears intact. There is moderate joint space loss of the hips superiorly with osteophytosis and subchondral sclerosis. Degenerative changes of the spine. Soft tissues: No suspicious soft tissue calcifications or masses. Multiple pelvic phleboliths. IMPRESSION: Mild-moderate osteoarthritis without evidence of an acute abnormality. Dictated by: Sherif Vieira D.O. on 05/03/2022 at 8:00 Approved by: Sherif Vieira D.O. on 05/03/2022 at 8:02
--- NOTE | 2022-05-03 08:19 | ED.BACK ---
HPI - Back Pain/Injury General Chief Complaint: Back Pain/Injury Stated Complaint: hip problem couldnt walk this morning x1 week Time Seen by Provider: 05/03/22 07:48 Source: patient History of Present Illness HPI Narrative: Mr. Bain is an 81-year-old man with chronic back pain and some left hip pain now for few years. He says the pain has been present to some degree another for some years but has been much worse over the past few days. This morning it was so severe that he had a great deal of difficulty getting out of his recliner where he sleeps and he could not go on his regular 4-5 mi walk. He denies any recent trauma. He denies fever, chills, weight loss, incontinence of bowel or bladder, weakness in the lower extremities. He denies night sweats. Related Data Home Medications Medication Instructions Recorded Confirmed multivitamin-ferrous 1 tab PO DAILY 02/24/18 11/13/21 fumarate-folic acid 18 mg-400 mcg tablet (Centrum) ascorbic acid (vitamin C) 1,500 mg 1,500 mg PO DAILY 03/08/19 11/13/21 tablet,extended release glucosamine sulfate 2KCl 1,000 mg 2,000 mg PO DAILY 03/08/19 11/13/21 tablet (Glucosamine Relief) omega-3 fatty acids 1,000 mg 1,000 mg PO DAILY 03/08/19 11/13/21 capsule (Fish Oil Concentrate) Allergies Allergy/AdvReac Type Severity Reaction Status Date / Time No Known Drug Allergies Allergy Verified 11/13/21 08:56 Review of Systems Review of Systems Narrative: Complete review of systems is negative other than as noted in the HPI Patient History Medical History Cataract Chronic back pain Colon polyps (2011) CTS (carpal tunnel syndrome) (2012) Gross hematuria Helicobacter pylori (H. pylori) infection (2007) Hematuria History of nephrolithiasis History of nephrolithiasis Hypocitraturia Left wrist fracture Nephrolithiasis PUD (peptic ulcer disease) Surgical History Anesthesia History of bilateral inguinal hernia repair (2004) History of carpal tunnel repair (2017) History of cataract surgery History of esophagogastroduodenoscopy (EGD) (2011) Status post colonoscopy (2012) Status post wrist surgery Family History Brother Diabetes mellitus Social History household members: spouse Smoking Status: Current some day smoker Smoking Status: Current some day smoker alcohol intake frequency: 3 or more drinks per day Substance Use Type: does not use Exam Narrative Exam Narrative: GENERAL: Alert, cooperative and in no distress. HEAD: Atraumatic. Normocephalic. EYES: Sclera are clear without icterus. Extraocular movements are full. ENT: No rhinorrhea. Oropharynx is moist. Mouth exam is benign. NECK: Supple. Full range of motion. CARDIOVASCULAR: Normal rate and rhythm without murmur gallop or rub. RESPIRATORY: Clear to auscultation. Breath sounds equal bilaterally. No wheezes, rales, or rhonchi. GASTROINTESTINAL: Abdomen soft, non-tender, nondistended. EXTREMITIES: No edema, full range of motion. No obvious trauma. Normal pulses dorsalis pedis bilaterally. Full range of motion of the hip without pain. No deformity. Straight leg testing is negative on the left BACK: Normal inspection, no CVA tenderness. NEURO: Nonfocal examination, normal speech, normal dorsiflexion and plantar flexion strength bilaterally SKIN: No rash or erythema of visible areas PSYCH: Normally oriented. Normal range of affect. Appropriate behavior Initial Vital Signs Initial Vital Signs: Vital Signs Temperature 97.9 F 05/03/22 07:59 Pulse Rate 63 05/03/22 07:59 Blood Pressure 168/93 H 05/03/22 07:59 Pulse Oximetry 98 05/03/22 07:59 Oxygen Delivery Method 05/03/22 07:59 Course Orders Ordered: ED Orders 05/03/22 08:17 XR hip w pel if done LT 2V Stat 05/03/22 09:23 CBC Auto Diff [Complete Blood Count AUTO DIFF] Stat CMP [Comprehensive Metabolic Panel] Stat 05/03/22 09:24 UA dip and micro [Urinalysis and Microscopic] Stat Vital Signs Vital signs: Vital Signs - 8 hr 05/03/22 07:59 Temperature 97.9 F Pulse Rate 63 Blood Pressure 168/93 H Pulse Oximetry 98 Oxygen Delivery Method Room Air MDM - Back Pain/Injury Lab Data Result diagrams: 05/03/22 09:23 05/03/22 09:23 Labs: Lab Results 05/03/22 05/03/22 05/03/22 Range/Units 09:23 09:23 09:24 WBC 4.8 (4.5-11.0) X10^3/uL RBC 4.42 L (4.5-5.9) X10^6/uL Hgb 15.2 (13.5-17.5) g/dL Hct 43.2 (41-53) % MCV 97.9 (80-100) fL MCH 34.4 H (26-34) PG MCHC 35.1 (30-36) % RDW 13.0 (11.6-14.8) % Plt Count 217 (150-400) X10^3/uL Neut % (Auto) 67.0 (50-75) % Lymph % (Auto) 20.2 L (25-40) % [place] % (Auto) 11.2 (3-14) % Eos % (Auto) 0.9 L (2-4) % Baso % (Auto) 0.7 (0-2) % Neut # (Auto) 3200 (2504-9462) /uL Lymph # (Auto) 1000 L (2055-8074) /uL [place] # (Auto) 500 (0-900) /uL Eos # (Auto) 0 (0-450) /uL Baso # (Auto) 0 (0-100) /uL Sodium 138 (137-145) mmol/L Potassium 4.2 (3.4-5.1) mmol/L Chloride 105 (98-107) mmol/L Carbon Dioxide 26 (22-32) mmol/L BUN 11 (9-20) mg/dL Creatinine 0.82 (0.66-1.25) mg/dL Estimated GFR > 60 (>60) mL/min BUN/Creatinine Ratio 13.4 (6-22) Glucose 97 (80-110) mg/dL Calcium 9.1 (8.4-10.2) mg/dL Total Bilirubin 1.3 (0.2-1.3) mg/dL AST 27 (17-59) IU/L ALT 23 (<50) IU/L Alkaline Phosphatase 51 (38-126) U/L Total Protein 7.0 (6.3-8.2) g/dL Albumin 4.2 (3.5-5.0) g/dL Globulin 2.8 (1.7-4.1) g/dL Albumin/Globulin Ratio 1.5 (1.0-2.8) Urine Color Yellow Urine Appearance Clear Urine pH 5.5 (4.5-8.0) Ur Specific [place] 1.010 (1.000-1.035) Urine Protein Negative (Negative) Urine Glucose (UA) Negative (Negative) g/dL Urine Ketones Negative (NEGATIVE) Urine Occult Blood Negative (Negative) Urine Nitrate Negative (Negative) Urine Bilirubin Negative (NEGATIVE) Urine Urobilinogen 0.2 (0.2) E.U./dL Ur Leukocyte Esterase Trace H (NEGATIVE) Urine RBC None seen (0-5/HPF) Urine WBC None seen (0-5/HPF) Ur Squamous Epith Cells None seen (0-5/HPF) Urine Bacteria None seen (None) Ur Culture Indicated? Cult not indicated Imaging Data Extremity x-ray #1: Radiologist's Impression: IMPRESSION:? ? Mild-moderate osteoarthritis without evidence of an acute abnormality. [facility] Narrative Medical decision making narrative: His pain his symptoms seem to be musculoskeletal. X-ray and laboratory data it is not revealing of anything more significant. I think outpatient follow-up is appropriate. Discharge Plan Departure Patient Disposition: Home Clinical Impression: Acute hip pain Activity Restrictions/Additional Instructions: No dangerous cause for pain is identified today. X-rays and laboratory data and urine analysis are reassuring. I do not think that there is an obvious tumor or infection cause for the pain today but I do recommend follow-up with her primary care doctor in the coming days to consider further investigation if warranted. For now I recommend Tylenol or ibuprofen as needed for the pain. Of course you should return to the emergency department for new or worsening symptoms such as inability to walk, or high fever or other concerning symptoms. Prescriptions: No Action Centrum 18-400 mg-mcg Tablet 1 tab PO DAILY omega-3 fatty acids [Fish Oil Concentrate] 1,000 mg capsule 1,000 mg PO DAILY glucosamine sulfate 2KCl [Glucosamine Relief] 1,000 mg tablet 2,000 mg PO DAILY ascorbic acid (vitamin C) 1,500 mg tablet extended release 1,500 mg PO DAILY Referrals: Evans Kennedy MD [Primary Care Provider] -
[2022-05-03 09:30] LABS: Add Manual Diff / Slide Review NO; Basophils Absolute Auto 0 /uL (0-100); Basophils Percent Auto 0.7 % (0-2); Eosinophils Absolute Auto 0 /uL (0-450); Eosinophils Percent Auto 0.9 % (2-4); Hematocrit 43.2 % (41-53); Hemoglobin 15.2 g/dL (13.5-17.5); Lymphocytes Absolute Auto 1000 /uL (1100-4500); Lymphocytes Percent Auto 20.2 % (25-40); Mean Corpuscular HGB Conc 35.1 % (30-36); Mean Corpuscular Hemoglobin 34.4 PG (26-34); Mean Corpuscular Volume 97.9 fL (80-100); Monocytes Absolute Auto 500 /uL (0-900); Monocytes Percent Auto 11.2 % (3-14); Neutrophils Absolute Auto 3200 /uL (1500-7000); Platelet Count 217 X10^3/uL (150-400); Red Blood Cell Count 4.42 X10^6/uL (4.5-5.9); White Blood Cell Count 4.8 X10^3/uL (4.5-11.0)
[2022-05-03 09:41] LABS: Alanine Aminotransferase 23 IU/L (<50); Albumin 4.2 g/dL (3.5-5.0); Albumin Globulin Ratio 1.5 (1.0-2.8); Alkaline Phosphatase 51 U/L (38-126); Aspartate Aminotransferase 27 IU/L (17-59); BUN Creatinine Ratio 13.4 (6-22); Bilirubin Total 1.3 mg/dL (0.2-1.3); Blood Urea Nitrogen 11 mg/dL (9-20); Calcium 9.1 mg/dL (8.4-10.2); Carbon Dioxide 26 mmol/L (22-32); Chloride 105 mmol/L (98-107); Estimated Glomerular Filt Rate > 60 mL/min (>60); Globulin 2.8 g/dL (1.7-4.1); Glucose 97 mg/dL (80-110); HEMOLYSIS < 15 (0-50); Potassium 4.2 mmol/L (3.4-5.1); Sodium 138 mmol/L (137-145)
[2022-05-03 10:11] LABS: Appearance Urine UA CLEAR; Bilirubin Urine UA NEGATIVE (NEGATIVE); Color Urine UA YELLOW; Glucose Urine UA NEGATIVE (Negative); Ketones Urine UA NEGATIVE (NEGATIVE); Leukocyte Esterase Urine UA TRACE (NEGATIVE); Nitrite Urine UA NEGATIVE (Negative); Occult Blood Urine UA NEGATIVE (Negative); Protein Urine UA NEGATIVE (Negative); Urobilinogen Urine UA 0.2 E.U./dL (0.2); pH Urine UA 5.5 (4.5-8.0)
[2022-05-03 10:19] LABS: Bacteria Urine None Seen; Culture Indicated Urine Cult Not Indicated; RBC Urine None Seen (0-5/HPF); Squamous Epithelial Cell Urine None Seen (0-5/HPF); WBC Urine None Seen (0-5/HPF)
== END 2022-05-03 11:23 | disposition home or self-care (01) ==
PROVIDERS: Emergency Provider Family Medicine Addiction Medicine; PCP Student in an Organized Health Care Education/Training Program
DX: M25.552 Pain in left hip (principal)
CPT/HCPCS: 73502; 80053; 81001; 85025; 99281; 99284

== ENCOUNTER → 2023-04-19 14:58 | Outpatient (CLI) | payer MEDICARE, OTHER, SELFPAY ==
--- NOTE | 2023-04-19 | DI.RAD.S_ITS ---
PROCEDURE: XR KUB INDICATIONS: kidney pain TECHNIQUE: One view of the abdomen acquired. COMPARISON: [facility], KALYANI, XR KUB, 12/26/2020, 13:51. [facility], KALYANI, XR KUB, 07/05/2020, 10:04. FINDINGS: Surgical changes and devices: None. Bowel: Bowel gas pattern is normal. Soft tissues: No suspicious abdominal calcifications. Visualized solid organ contours appear normal in size. Bones: No suspicious bony lesions. IMPRESSION: No nephrolithiasis. Dictated by: Boyd Putnam M.D. on 04/19/2023 at 16:29 Approved by: Boyd Putnam M.D. on 04/19/2023 at 16:29
--- NOTE | 2023-04-19 | DI.RAD.S_ITS ---
PROCEDURE: XR THORACIC SPINE 3V INDICATIONS: thoracic pain TECHNIQUE: 3 views of the thoracic spine were acquired. COMPARISON: None. FINDINGS: Bones: No fractures or dislocations. No suspicious bony lesions. 12 pairs of ribs are noted, and appear intact where visualized. Soft tissues: No paravertebral stripe thickening. IMPRESSION: No acute abnormality. Dictated by: Boyd Putnam M.D. on 04/19/2023 at 16:28 Approved by: Boyd Putnam M.D. on 04/19/2023 at 16:29
[2023-04-19 15:39] LABS: Appearance Urine UA CLEAR; Bilirubin Urine UA NEGATIVE (NEGATIVE); Color Urine UA YELLOW; Glucose Urine UA NEGATIVE (Negative); Ketones Urine UA NEGATIVE (NEGATIVE); Leukocyte Esterase Urine UA TRACE (NEGATIVE); Nitrite Urine UA NEGATIVE (Negative); Occult Blood Urine UA NEGATIVE (Negative); Protein Urine UA NEGATIVE (Negative); Specific Gravity Urine UA 1.025 (1.000-1.035); Urobilinogen Urine UA 0.2 E.U./dL (0.2)
[2023-04-19 15:59] LABS: Add Manual Diff / Slide Review NO; Basophils Absolute Auto 0 /uL (0-100); Basophils Percent Auto 0.6 % (0-2); Eosinophils Absolute Auto 100 /uL (0-450); Eosinophils Percent Auto 1.4 % (2-4); Hemoglobin 15.2 g/dL (13.5-17.5); Lymphocytes Absolute Auto 1600 /uL (1100-4500); Lymphocytes Percent Auto 24.1 % (25-40); Mean Corpuscular HGB Conc 34.6 % (30-36); Mean Corpuscular Hemoglobin 33.6 PG (26-34); Mean Corpuscular Volume 97.1 fL (80-100); Monocytes Absolute Auto 700 /uL (0-900); Monocytes Percent Auto 11.5 % (3-14); Neutrophils Absolute Auto 4000 /uL (1500-7000); Neutrophils Percent Auto 62.4 % (50-75); Platelet Count 266 X10^3/uL (150-400); Red Blood Cell Count 4.53 X10^6/uL (4.5-5.9); Red Cell Distribution Width 12.8 % (11.6-14.8); White Blood Cell Count 6.4 X10^3/uL (4.5-11.0)
[2023-04-19 16:13] LABS: RBC Urine None Seen (0-5/HPF); WBC Urine 5-10/HPF (0-5/HPF)
[2023-04-19 16:14] LABS: Bacteria Urine Few (2-10); Culture Indicated Urine Specimen Cultured; Mucus Urine 1+ (Negative); Squamous Epithelial Cell Urine 1-5 /HPF (0-5/HPF)
[2023-04-19 16:18] LABS: Alanine Aminotransferase 28 IU/L (<50); Albumin 4.3 g/dL (3.5-5.0); Albumin Globulin Ratio 1.3 (1.0-2.8); Alkaline Phosphatase 61 U/L (38-126); Aspartate Aminotransferase 33 IU/L (17-59); BUN Creatinine Ratio 16.3 (6-22); Bilirubin Total 1.3 mg/dL (0.2-1.3); Blood Urea Nitrogen 17 mg/dL (9-20); Calcium 9.2 mg/dL (8.4-10.2); Carbon Dioxide 30 mmol/L (22-32); Chloride 100 mmol/L (98-107); Estimated Glomerular Filt Rate > 60 mL/min (>60); Globulin 3.3 g/dL (1.7-4.1); Glucose 95 mg/dL (80-110); HEMOLYSIS < 15 (0-50); Potassium 4.5 mmol/L (3.4-5.1); Sodium 135 mmol/L (137-145); Total Protein 7.6 g/dL (6.3-8.2)
== END ==
PROVIDERS: PCP Student in an Organized Health Care Education/Training Program; Referring Provider Pediatrics; Visit Provider Pediatrics
DX: M48.04 Spinal stenosis, thoracic region (principal); R10.31 Right lower quadrant pain; Z87.442 Personal history of urinary calculi
CPT/HCPCS: 36415; 72072; 74018; 80053; 81001; 85025; 87086

== ENCOUNTER → 2023-09-21 07:58 | Outpatient (CLI) | payer MEDICARE, OTHER, SELFPAY ==
--- NOTE | 2023-09-21 08:00 | DI.US.S_ITS ---
PROCEDURE: US CAROTID DOPPLER BI INDICATIONS: vertigo TECHNIQUE: Color and pulse Doppler interrogation was performed of both carotid systems, with image documentation and velocity measurements. COMPARISON: None. FINDINGS: Stenosis calculations are based on SRU (Society of Radiologists in Ultrasound) criteria. The flow velocities and the arterial waveforms are normal within both carotid arterial systems. Minimal atherosclerotic plaque is seen on both sides. The estimated degree of internal carotid artery stenosis is less than 50%. Antegrade flow is confirmed within both vertebral arteries. IMPRESSION: No hemodynamically significant stenosis is seen. Dictated by: Urbano Martinez M.D. on 09/21/2023 at 13:41 Approved by: Urbano Martinez M.D. on 09/21/2023 at 13:42
--- NOTE | 2023-09-21 08:00 | DI.ECHO.S_ITS ---
[facility]---------+ [facility] +---------+ : : [address] : [address] : : : : [id number] : : : : Phone: [phone]+ Echocardiogram Report + + :Name: KIEL SILVA Study Date: 09/21/2023 Height: 70 in : :[facility] ReadingLocation: Weight: 170 lb : : Gender: Male BSA: 1.9 m2 : :: 1940 Age: 83 yrs BP: 143/79 mmHg: :Reason For Study: Syncope : : Performed By: Sol Will : :Referring: EWA EVERETT : + + Interpretation Summary There are poor parasternal images due to patients pectus excavatum. 1) Normal left ventricular thickness, size, wall motion, and systolic function (EF 60-65%). 2) Mildly enlarged right ventricle wtih mildly reduced function. 3) There is moderate mitral regurgitation. The etiology could be the borderline mitral valve prolapse of the posterior leaflet. 4) No prior Echo available for comparison. Procedure: A two-dimensional transthoracic echocardiogram with color flow and Doppler was performed. The study quality was technically adequate. There is no prior echocardiogram noted for this patient. The heart rate ranged between 51-63 bpm during the study. Left Ventricle: The left ventricle is normal in size and wall thickness. The ejection fraction is estimated to be 60-65%. Left ventricular systolic function appears normal without focal wall motion abnormalities. Diastolic parameters suggest a relaxation abnormality of the left ventricle, consistent with probable normal filling pressures. Right Ventricle: The right ventricle is mildly dilated. Right ventricular systolic function is mildly reduced. Atria: The left atrial size is normal. Right atrial size is normal. The interatrial septum grossly appears intact with no obvious evidence for an atrial septal defect. Mitral Valve: The mitral valve leaflets appear mildly thickened, but open well. There is borderline mitral valve prolapse. There is moderate mitral regurgitation. Aortic Valve: The aortic valve is mildly calcified. The aortic valve opens well. There is no aortic valve stenosis. No aortic regurgitation is present. Tricuspid Valve: The tricuspid valve leaflets are thin and pliable. The tricuspid valve leaflets are thickened and/or calcified, but open well. There is trace tricuspid regurgitation. The right ventricular systolic pressure is estimated to be at least 34 mmHg based on an estimated right atrial pressure of 15 mm Hg. Pulmonic Valve: The pulmonic valve is not well visualized. Great Vessels: The aortic root is normal size. The ascending aorta is at the upper limits of normal in size. The aortic arch is normal in size. The IVC is dilated (diameter is greater than 2.1 cm) and it collapses less than 50% with a sniff. This suggests a high right atrial pressure of 15 mm Hg. Pericardium/ Pleura There is no pericardial effusion. There is no pleural effusion. MMode/2D Measurements & Calculations LVIDd: 4.9 cm LVOT diam: 2.4 cm LVIDs: 1.8 cm Ao root diam: 3.7 cm FS: 62.6 % asc Aorta Diam: 3.9 cm EPSS: 0.67 cm Ao Arch Diam (Prox Trans): 2.5 cm IVSd: 1.1 cm LVPWd: 0.80 cm LV dunlap. diameter/BSA (cm/m^2): 2.5 LV sys. diameter/BSA (cm/m^2): 0.94 LA A2 area: 19.2 cm2 RA long axis: 4.9 cm LA A4 area: 22.8 cm2 RA area: 18.7 cm2 LA length (vol): 5.8 cm RA vol: 60.8 ml LA vol: 63.5 ml RA : 31.2 ml/m2 LA vol index: 32.6 ml/m2 IVC diam: 2.4 cm RVD1 (basal): 3.1 cm Doppler Measurements & Calculations Ao V2 max: 142.1 cm/sec LVOT Max Ted: 96.5 cm/sec Ao V2 mean: 92.5 cm/sec LV V1 max P.7 mmHg Ao max P.1 mmHg LV V1 VTI: 21.6 cm Ao mean P.0 mmHg DIONI(I,D): 2.8 cm2 Ao V2 VTI: 34.5 cm DIONI(V,D): 3.1 cm2 sev ratio: 0.63 DIONI indexed to BSA (cm^2/m^2): 1.4 MV E max ted: 103.0 cm/sec TR max ted: 219.1 cm/sec MV A max ted: 58.2 cm/sec TR max P.2 mmHg MV E/A: 1.8 PA V2 max: 73.3 cm/sec Med Peak E' Ted: 7.3 cm/sec PA V2 mean: 49.4 cm/sec E/E' med: 14.2 PA mean P.1 mmHg Lat Peak E' Ted: 8.2 cm/sec PA pr(Accel): 20.8 mmHg E/E' lat: 12.5 E/e' average: 13.3 MV dec time: 0.32 sec MR PISA: 4.7 cm2 SV(LVOT): 97.4 ml MR flow rate: 175.8 cm3/sec MR PISA radius: 0.86 cm Reading Physician:12:27 PM
== END ==
PROVIDERS: PCP Family Medicine; Referring Provider Family Medicine; Visit Provider Family Medicine
DX: I34.0 Nonrheumatic mitral (valve) insufficiency (principal); R55 Syncope and collapse; R42 Dizziness and giddiness
CPT/HCPCS: 93306; 93880

== ENCOUNTER → 2023-09-30 08:51 | Outpatient (CLI) | payer MEDICARE, OTHER, SELFPAY ==
[2023-09-30 09:49] LABS: Add Manual Diff / Slide Review NO; Basophils Absolute Auto 100 /uL (0-100); Basophils Percent Auto 0.9 % (0-2); Eosinophils Absolute Auto 100 /uL (0-450); Eosinophils Percent Auto 1.5 % (2-4); Hematocrit 48.1 % (41-53); Hemoglobin 16.7 g/dL (13.5-17.5); Lymphocytes Absolute Auto 1700 /uL (1100-4500); Lymphocytes Percent Auto 27.2 % (25-40); Mean Corpuscular HGB Conc 34.7 % (30-36); Mean Corpuscular Hemoglobin 33.8 PG (26-34); Mean Corpuscular Volume 97.5 fL (80-100); Monocytes Absolute Auto 700 /uL (0-900); Monocytes Percent Auto 10.6 % (3-14); Neutrophils Absolute Auto 3800 /uL (1500-7000); Neutrophils Percent Auto 59.8 % (50-75); Platelet Count 241 X10^3/uL (150-400); Red Blood Cell Count 4.94 X10^6/uL (4.5-5.9); Red Cell Distribution Width 12.8 % (11.6-14.8); White Blood Cell Count 6.3 X10^3/uL (4.5-11.0)
[2023-09-30 10:22] LABS: Alanine Aminotransferase 22 IU/L (<50); Albumin 4.4 g/dL (3.5-5.0); Albumin Globulin Ratio 1.4 (1.0-2.8); Alkaline Phosphatase 57 U/L (38-126); BUN Creatinine Ratio 17.5 (6-22); Bilirubin Total 1.2 mg/dL (0.2-1.3); Blood Urea Nitrogen 17 mg/dL (9-20); Calcium 9.4 mg/dL (8.4-10.2); Carbon Dioxide 29 mmol/L (22-32); Chloride 102 mmol/L (98-107); Estimated Glomerular Filt Rate > 60 mL/min (>60); Globulin 3.1 g/dL (1.7-4.1); Glucose 96 mg/dL (80-110); HEMOLYSIS < 15 (0-50); Potassium 4.3 mmol/L (3.4-5.1); Sodium 138 mmol/L (137-145); Total Protein 7.5 g/dL (6.3-8.2)
[2023-10-01 14:58] LABS: Aspartate Aminotransferase 31 IU/L (17-59)
== END ==
PROVIDERS: PCP Family Medicine; Referring Provider Family Medicine; Visit Provider Family Medicine
DX: R42 Dizziness and giddiness (principal); I44.0 Atrioventricular block, first degree
CPT/HCPCS: 36415; 80053; 84443; 85025

== ENCOUNTER → 2024-03-13 08:36 | Outpatient (CLI) | payer MEDICARE, OTHER, SELFPAY ==
--- NOTE | 2024-03-13 08:38 | DI.RAD.S_ITS ---
PROCEDURE: XR KNEE RT 3V INDICATIONS: Right knee pain posterior lateral; swelling TECHNIQUE: 3 views of the knee were acquired. COMPARISON: None. FINDINGS: Bones: No fractures or dislocations. No suspicious bony lesions. 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 Minimal periarticular osteophytes. No erosions. Soft tissues: Mild joint effusion. No suspicious soft tissue calcifications. Chondrocalcinosis is present. IMPRESSION: Tricompartmental arthritic changes most severe medially. Dictated by: Eladia Bennett M.D. on 03/13/2024 at 15:56 Approved by: Eladia Bennett M.D. on 03/13/2024 at 15:56
== END ==
PROVIDERS: PCP Family Medicine; Referring Provider Physician Assistant; Visit Provider Physician Assistant
DX: M25.561 Pain in right knee (principal); M25.461 Effusion, right knee
CPT/HCPCS: 73562

== ENCOUNTER 2024-07-28 09:31 | Emergency (ER) | payer MEDICARE, OTHER, SELFPAY ==
[2024-07-28 09:47] VITALS: BP 192/93; PULSE 61; RESP 17; TEMP 36.3; O2SAT 98; BMI 25.1
--- NOTE | 2024-07-28 11:14 | ED_ITS ---
HPI - Back Pain/Injury <Maggie Mendes PA-C - Last Filed: 07/28/24 16:42> General Chief Complaint: Back Pain/Injury Stated Complaint: low back pain Time Seen by Provider: 07/28/24 11:39 History of Present Illness HPI Narrative: Mr. Bain is a pleasant 83-year-old male with a past medical history of chronic low back pain, anxiety, hearing loss, nephrolithiasis who presents to emergency department for acute on chronic low back pain since yesterday. Patient reports he suffers with chronic back pain however yesterday it became more severe. States that every morning he goes on a long walk and after his walk yesterday he experienced severe pain in his low back that made it difficult for him to walk. This pain self-resolved as the afternoon went on. He was awoken at 4:00 a.m. this morning with the pain again. He took 1 g of Tylenol which improved the pain but it returned at 6:00 a.m. so he took 5 mg of oxycodone which also improved the pain. Pain is now starting to come back. He denies any numbness, tingling, weakness of the lower extremities. Denies any direct trauma to the back. Denies hematuria or dysuria. Denies fevers, chills, history of diabetes or cancer. Denies bowel or bladder incontinence. Related Data Home Medications Medication Instructions Recorded Confirmed oxycodone 5 mg capsule 5 mg PO BID PRN Pain (Scale Score 07/28/24 07/28/24 7-10) Allergies Allergy/AdvReac Type Severity Reaction Status Date / Time No Known Drug Allergies Allergy Verified 07/28/24 09:50 Review of Systems <Maggie Mendes PA-C - Last Filed: 07/28/24 16:42> Constitutional Constitutional: Denies chills, Denies fatigue, Denies fever(s), Denies frequent falls, Denies lethargy and Denies weakness Eyes Eyes: Denies change in vision ENT Ears, Nose, Mouth, and Throat: Denies change in voice and Denies neck pain Cardiovascular Cardiovascular: Denies chest pain, Denies irregular heart rhythm, Denies lightheadedness, Denies palpitations, Denies dyspnea and Denies dyspnea on exertion Respiratory Respiratory: Denies cough, Denies dyspnea, Denies dyspnea on exertion and Denies wheezing Gastrointestinal Gastrointestinal: Denies abdominal pain, Denies change in bowel habits, Denies nausea and Denies vomiting Musculoskeletal Musculoskeletal: Reports back pain, Denies deformity, Denies muscle weakness, Denies neck pain and Denies numbness Integumentary/Breasts Skin/Breast: Denies erythema, Denies rash and Denies wounds Neurologic Neurologic: Denies confusion, Denies frequent falls, Denies numbness and Denies weakness Psychiatric Psychiatric: Denies confusion Endocrine Endocrine: Denies fatigue and Denies palpitations Allergic/Immunologic Allergic/Immunologic: Denies wheezing Patient History <Maggie Mendes PA-C - Last Filed: 07/28/24 16:42> Medical History Plantar fasciitis of right foot Thoracic back pain Hypocitraturia History of nephrolithiasis Gross hematuria Hematuria History of nephrolithiasis Nephrolithiasis Chronic back pain CTS (carpal tunnel syndrome) (2012) Cataract Helicobacter pylori (H. pylori) infection (2007) PUD (peptic ulcer disease) Colon polyps (2011) Left wrist fracture Surgical History History of cataract surgery Status post wrist surgery Anesthesia History of bilateral inguinal hernia repair (2004) History of carpal tunnel repair (2017) Status post colonoscopy (2011) History of esophagogastroduodenoscopy (EGD) (2011) Family History Brother Diabetes mellitus Social History household members: spouse Smoking Status: Current some day smoker Smoking Status: Current some day smoker alcohol intake frequency: 3 or more drinks per day Substance Use Type: does not use Exam <Maggie Mendes PA-C - Last Filed: 07/28/24 16:42> Narrative Exam Narrative: Well-appearing 83-year-old male. Ambulates independently. Strong lower extremity bilateral strength, sensation intact to light touch throughout. Initial Vital Signs Initial Vital Signs: Vital Signs Temperature 97.3 F L 07/28/24 09:47 Pulse Rate 61 07/28/24 09:47 Respiratory Rate 17 07/28/24 09:47 Blood Pressure 192/93 H 07/28/24 09:47 Pulse Oximetry 98 07/28/24 09:47 Oxygen Delivery Method Room Air 07/28/24 09:47 Const General: cooperative [facility] Head: normocephalic and atraumatic Ears: external ears normal Eyes Conjunctivae: conjunctivae normal Neck Neck: normal visual inspection Chest Chest: normal inspection of the chest Resp Effort & Inspection: normal respiratory effort, able to speak in complete sentences and no respiratory distress Auscultation: clear to auscultation bilaterally Cardio Rate: regular rate Rhythm: regular rhythm GI Palpation: soft Back/Spine/Pelvis Cervical Spine: cervical ROM normal Thoracic/Lumbar Spine: thoracic and lumbar spine normal to inspection Other: No tenderness to palpation of cervical, thoracic, lumbar spine or paraspinal muscles. No rashes. No deformities. Patient stands and ambulates independently without difficulty. Skin General: no rashes or lesions noted, No jaundice and No petechiae Neuro General: patient alert and patient oriented x3 Extrem General: normal to inspection, full ROM, capillary refill normal, No no pedal edema, No calf tenderness and other Psych Appearance: well kempt <Eva Benton DO - Last Filed: 07/29/24 08:00> Initial Vital Signs Initial Vital Signs: Vital Signs Temperature 97.3 F L 07/28/24 09:47 Pulse Rate 61 07/28/24 09:47 Respiratory Rate 17 07/28/24 09:47 Blood Pressure 192/93 H 07/28/24 09:47 Pulse Oximetry 98 07/28/24 09:47 Oxygen Delivery Method Room Air 07/28/24 09:47 Course <Maggie Mendes PA-C - Last Filed: 07/28/24 16:42> Orders Ordered: Discontinued Medications Ibuprofen (Ibuprofen 400 Mg Tablet) 400 mg PO NOW ONE Stop: 07/28/24 11:35 Last Admin: 07/28/24 12:01 Dose: 400 mg Documented By: TC Vital Signs Vital signs: Vital Signs - 8 hr 07/28/24 09:47 Temperature 97.3 F L Pulse Rate 61 Respiratory Rate 17 Blood Pressure 192/93 H Pulse Oximetry 98 Oxygen Delivery Method Room Air <Eva Benton DO - Last Filed: 07/29/24 08:00> Orders Ordered: Discontinued Medications Ibuprofen (Ibuprofen 400 Mg Tablet) 400 mg PO NOW ONE Stop: 07/28/24 11:35 Last Admin: 07/28/24 12:01 Dose: 400 mg Documented By: TC Vital Signs Vital signs: Vital Signs - 8 hr 07/28/24 09:47 Temperature 97.3 F L Pulse Rate 61 Respiratory Rate 17 Blood Pressure 192/93 H Pulse Oximetry 98 Oxygen Delivery Method Room Air MDM - Back Pain/Injury <Maggie Mendes PA-C - Last Filed: 07/28/24 16:42> Medical Records Attestation: I reviewed the patient's medical records. Lab Data Lab results narrative: UA with no gross blood or infection. Labs: Lab Results 07/28/24 Range/Units 12:08 Urine RBC None seen (0-5/HPF) Urine WBC None seen (0-5/HPF) Ur Squamous Epith Cells None seen (0-5/HPF) Urine Bacteria None seen (None) Ur Culture Indicated? Cult not indicated Vol Urine Centrifuged 10ml (spun) MDM Narrative Medical decision making narrative: Mr. Bain is a pleasant 83-year-old male with a past medical history of chronic low back pain, anxiety, hearing loss, nephrolithiasis who presents to emergency department for acute on chronic low back pain since yesterday. Differential diagnosis includes but is not limited to UTI, nephrolithiasis, ureterolithiasis, spinal stenosis, lumbar degenerative disc disease, radiculopathy, etc. On exam patient is in no acute distress, nontoxic-appearing, blood pressure mildly elevated with no symptomatic hypertension. negative SLR BL. He denies any red flag back pain symptoms including history of diabetes, cancer, hematuria, lower extremity numbness, tingling, weakness, bowel or bladder incontinence. No chest pain or abdominal pain. Reports he has had similar pain for the last 55 years. Will check UA to rule out gross blood or infection and treat with ibuprofen. UA negative. Patient's pain improving. Advised to follow up with both his PCP and [facility] for further management. We discussed signs and symptoms to return to the ED immediately for. Patient is ambulatory, agreeable to discharge, stable for discharge. <Eva Benton DO - Last Filed: 07/29/24 08:00> Lab Data Labs: Lab Results 07/28/24 Range/Units 12:08 Urine RBC None seen (0-5/HPF) Urine WBC None seen (0-5/HPF) Ur Squamous Epith Cells None seen (0-5/HPF) Urine Bacteria None seen (None) Ur Culture Indicated? Cult not indicated Vol Urine Centrifuged 10ml (spun) Discharge Plan Departure Patient Disposition: Home Clinical Impression: Acute exacerbation of chronic low back pain Instructions: DI for Low Back Pain Activity Restrictions/Additional Instructions: Please take tylenol (acetaminophen) 1000 mg and Advil/Motrin (ibuprofen) 400 mg every 6-8 hours if needed for low back pain. Please rest, do gentle stretching and walking, and call your primary care doctor for follow-up appointment. You will need to follow up with an orthopedic surgeon for further management. Return to the emergency department immediately if you develop any lower leg numbness, tingling, weakness or issues urinating or having a bowel movement. Prescriptions: No Action oxycodone 5 mg Capsule 5 mg PO BID PRN (Reason: Pain (Scale Score 7-10)) Referrals: Torres Garcia MD [Physician] - As soon as possible Magui Silva DO [Primary Care Provider] - Stand Alone Forms: Patient Portal/API/Survey ED Sign-out <Eva Benton DO - Last Filed: 07/29/24 08:00> Cosign ED Attending Camilla Attestation: I was available for consultation.
[2024-07-28] MEDS: IBUPROFEN 400 MG TABLET PO (12:01)
[2024-07-28 12:15] LABS: Urine Volume 10mL (spun)
[2024-07-28 12:19] LABS: Bacteria Urine None Seen; Culture Indicated Urine Cult Not Indicated; RBC Urine None Seen (0-5/HPF); Squamous Epithelial Cell Urine None Seen (0-5/HPF); WBC Urine None Seen (0-5/HPF)
== END 2024-07-28 12:55 | disposition home or self-care (01) ==
PROVIDERS: Emergency Provider Physician Assistant; PCP Family Medicine
DX: M54.50 Low back pain, unspecified (principal)
CPT/HCPCS: 81015; 99282; 99283